=== PATIENT | female | born 1965 | race Two or more races ===

== ENCOUNTER → 2017-05-30 | Outpatient (CLI) | payer OTHER ==
[~2017-05-30] VITALS: Ht 162.6 cm; Wt 52.2 kg
[~2017-05-30] MED LIST: LIDOCAINE 1% / SOD BICARB 8.4% 20 ML VIAL. IJ ONE; LIDOCAINE 2%/EPI 1:100,000 20 ML VIAL. ONE; TOPI25TA7 PO
[2017-05-30 09:42] VITALS: BP 112/55
--- NOTE | 2017-06-01 13:03 | PATHOLOGY ---
PATHOLOGY REPORT * * * * * * * * FINAL DIAGNOSIS: Breast, "left breast needle core biopsies": - Fibrocystic changes with fibroadenomatous nodule, usual ductal hyperplasia without atypia, cyst formation, and microcalcification, the largest area measures approximately 1.0 cm in greatest dimension. - See comment. COMMENT: This case was also reviewed by Dr. Michelle Veloz. (SHA:mgr; 05/31/2017) REPORT ELECTRONICALLY SIGNED BY: Toribio Lopez M.D. DATE/TIME: 06/01/2017 13:02 * * * * * * * * GROSS PATHOLOGY: Received in formalin labeled "Noelle Murdock, left breast BX," are multiple needle cores of yellow-lei fibrofatty tissue measuring 3.0 x 0.9 x 0.4 cm in aggregate dimensions. Also received is a plastic cassette containing multiple cores of yellow-lei fibrofatty tissue measuring 3.5 x 2.4 x 0.7 cm in aggregate dimensions. The tissue in the cassette is transferred to cassette A3, and the remaining tissue is submitted in its entirety in cassette A1 and A2. The cold ischemic time is 11 minutes. The total formalin fixation time is 12 hours and 10 minutes. (TSD; 05/30/2017) INITIAL CPT CODE(S): A; 47814 Professional services performed by [facility] [place] [place] [address] Technical services performed by [facility] at [address] [place] [address], [facility] [address] [address]. SPECIMEN(S) RECEIVED: A.Left breast biopsy CLINICAL HISTORY: None provided PATIENT: NOELLE MURDOCK /AGE: 211/04/1965 (Age: 51) PATIENT #: [id number] ALT CASE #: SPECIMEN COLLECTION DATE: 05/30/2017 SPECIMEN RECEIVED DATE: 05/30/2017 [facility] - [id number] [place] [address] - PHONE: [phone] * * * END OF REPORT * * *
== END | disposition home or self-care (01) ==
LOC: MAMMO 08:56 → EDUNIT# 09:30
PROVIDERS: ATTEND Surgery
DX: R92.0 Mammographic microcalcification found on diagnostic imaging of breast (principal)
CPT/HCPCS: 19085; 77022; C1713; G0206; 77065

== ENCOUNTER → 2018-07-10 | Outpatient (CLI) | payer OTHER ==
[2017-05-30 09:42] VITALS: BP 112/55
[~2018-07-10] MED LIST changes: -LIDOCAINE 1% / SOD BICARB 8.4% 20 ML VIAL. IJ ONE; -LIDOCAINE 2%/EPI 1:100,000 20 ML VIAL. ONE
--- NOTE | 2018-07-10 14:17 | RAD ---
DATE: 07/10/2018 EXAM: DIGITAL DIAGNOSTIC BILATERAL, BREAST LEFT HISTORY: Left breast nodule, pain COMPARISON: 05/05/2017, 05/30/2017 This study was interpreted with the benefit of Computerized Aided Detection (CAD). Breast Density: HETERO The breast parenchyma is heterogenously dense, which could reduce sensitivity of mammography. Breast parenchyma level C. FINDINGS: A breast biopsy marker is again noted medially in the left breast. No new or enlarging breast densities are seen. A tubular structure compatible with a prominent superficial vein projected over the superior aspect of the left breast on the oblique view is unchanged since multiple previous studies. Minimal benign type calcifications present. No suspicious microcalcifications have developed. Left breast ultrasound, 07/10/2018: A targeted ultrasound exam was performed of the upper inner quadrant of the left breast where the patient reports pain and a possible lump. Normal heterogeneous fibroglandular shadows are evident. No suspicious mass or abnormal fluid collection is seen. IMPRESSION: 1. Stable mammograms without evidence of malignancy. 2. A targeted ultrasound exam of the upper inner quadrant of the left breast reveals no abnormality. Clinical surveillance is suggested. . BI-RADS CATEGORY: 2 BENIGN FINDING(S) RECOMMENDED FOLLOW-UP: 12M 12 MONTH FOLLOW-UP PQRS compliance statement: Patient information was entered into a reminder system with a target due date for the next mammogram. Mammography is a sensitive method for finding small breast cancers, but it does not detect them all and is not a substitute for careful clinical examination. A negative mammogram does not negate a clinically suspicious finding and should not result in delay in biopsying a clinically suspicious abnormality. "Our facility is accredited by the [employer] Mammography Program."
== END | disposition home or self-care (01) ==
LOC: MAMMO 12:59
PROVIDERS: ATTEND Family Medicine
DX: N63.21 Unspecified lump in the left breast, upper outer quadrant (principal); R92.1 Mammographic calcification found on diagnostic imaging of breast
CPT/HCPCS: 76641; 77066

== ENCOUNTER → 2019-09-03 | Outpatient (CLI) | payer OTHER ==
[2017-05-30 09:42] VITALS: BP 112/55
--- NOTE | 2019-09-03 10:57 | RAD ---
DATE: September 03, 2019 EXAM: DIGITAL SCREEN BILAT W/CAD HISTORY: Screening study. History of benign left breast biopsy in 2017. COMPARISON: 2017 and 2018 This study was interpreted with the benefit of Computerized Aided Detection (CAD). FINDINGS: Breast Density: HETERO The breast parenchyma is heterogenously dense, which could reduce sensitivity of mammography. Breast parenchyma level C.. There are no dominant suspicious masses, suspicious microcalcifications or evidence of architectural distortion. A biopsy clip is present within the medial aspect of the left breast at the 8-9:00 position seen in 2018. Calcifications of the left breast seen in 2017 have been removed. A benign intramammary lymph node of the upper outer quadrant of the right breast is stable. IMPRESSION: No mammographic indicators for malignancy. BI-RADS CATEGORY: 2 BENIGN FINDING RECOMMENDED FOLLOW-UP: 12M 12 MONTH FOLLOW-UP PQRS compliance statement: Patient information was entered into a reminder system with a target due date September 04, 2020 for the next mammogram. Mammography is a sensitive method for finding small breast cancers, but it does not detect them all and is not a substitute for careful clinical examination. A negative mammogram does not negate a clinically suspicious finding and should not result in delay in biopsying a clinically suspicious abnormality. "Our facility is accredited by the [employer] Mammography Program." The patient's breast density may affect the ability of mammography to detect breast cancer. There are 4 categories of breast density, A, B, C and D. Breast density A means that most of the breast tissue is replaced with adipose tissue and therefore is not dense. Breast density B means that the breast tissue is mildly dense and scattered. Breast density C means that the breast tissue is heterogeneously dense. Breast density D means that the breast tissue is very dense. Breast densities especially C and D may decrease the sensitivity of mammography to detect breast cancer. Therefore, the patient may benefit from 3-D breast mammography (3D breast tomography) as a part of their screening mammogram. Insurance may or may not pay for this additional imaging. The patient's breast density based on today's mammogram is category C.
== END | disposition home or self-care (01) ==
LOC: MAMMO 13:06
PROVIDERS: ATTEND Family Medicine
DX: Z12.31 Encounter for screening mammogram for malignant neoplasm of breast (principal); N64.89 Other specified disorders of breast
CPT/HCPCS: 77067

== ENCOUNTER → 2020-09-15 | Outpatient (CLI) | payer SELFPAY ==
[2017-05-30 09:42] VITALS: BP 112/55
--- NOTE | 2020-09-15 10:59 | RAD ---
DATE: 09/15/2020 7:39 AM EXAM: DIGITAL SCREEN BILAT W/CAD HISTORY: Screening COMPARISON: 09/03/2019 Bilateral full field craniocaudal and mediolateral oblique images were obtained using digital technique. This study was interpreted with the benefit of Computerized Aided Detection (CAD). FINDINGS: Breast Density: HETERO The breast parenchyma Is heterogeneously dense, which could reduce sensitivity of mammography. Breast parenchyma level C No suspicious masses, microcalcifications or architectural distortion is present to suggest malignancy in either breast. The visualized axillae are unremarkable. IMPRESSION: No mammographic evidence of malignancy. BI-RADS CATEGORY: 1 NEGATIVE RECOMMENDED FOLLOW-UP: 12M 12 MONTH FOLLOW-UP Annual screening mammography is recommended, unless clinically indicated sooner based on symptoms or change in physical exam. PQRS compliance statement: Patient information was entered into a reminder system with a target due date for the next mammogram. Mammography is a sensitive method for finding small breast cancers, but it does not detect them all and is not a substitute for careful clinical examination. A negative mammogram does not negate a clinically suspicious finding and should not result in delay in biopsying a clinically suspicious abnormality. "Our facility is accredited by the [employer] Mammography Program."
== END ==
LOC: MAMMO 07:34
PROVIDERS: ATTEND Family Medicine
DX: Z12.31 Encounter for screening mammogram for malignant neoplasm of breast (principal)
CPT/HCPCS: 77067

== ENCOUNTER → 2022-01-23 | Outpatient (CLI) | payer OTHER ==
[2017-05-30 09:42] VITALS: BP 112/55
--- NOTE | 2022-01-24 12:21 | RAD ---
Bilateral digital screening mammogram (2-D): Reason for examination: Routine screening. Comparison: Mammograms from 09/15/2020 and 09/03/2019. Interpretation was made with the benefit of CAD. FINDINGS: Breast density: Category C. There is heterogeneously dense fibroglandular tissue, which may obscure s mall masses. No suspicious breast mass, malignant appearing calcifications, or architectural distortion is seen. IMPRESSION: No evidence of malignancy. Recommend routine screening. Assessment: BI-RADS 1. Negative. Recommendation: Routine screening mammograms. Your patient's mammogram demonstrates that she has dense breast tissue (breast density category C or D), which could hide abnormalities, and if she has other risk factors for breast cancer that have bee n identified, she might benefit from supplemental screening tests that may be suggested by you as her ordering physician. Dense breast tissue, in and of itself, is a relatively common condition. Therefo re, this information is not provided to cause undue concern, but rather to raise your awareness and t o promote discussion with your patient regarding the presence of other risk factors, in addition to d ense breast tissue. This patient's information has been entered into a reminder system for the patient to be notified wit h the results of her examination by mail and a target date for the next mammogram. A reminder letter will be generated. Electronically signed by: Muriel Hernandez MD (01/23/2022 5:37 PM) [id number]
== END ==
LOC: MAMMO 15:18
PROVIDERS: ATTEND Family Medicine
DX: Z12.31 Encounter for screening mammogram for malignant neoplasm of breast (principal)
CPT/HCPCS: 77067